=== PATIENT | male | born 1975 | race African-American/Black ===

== ENCOUNTER 2022-02-16 15:24 | Emergency (ER) | payer OTHER ==
[~2022-02-16] VITALS: Ht 165.1 cm; Wt 86.2 kg
[2022-02-16 16:37] LABS: PLATELET COUNT 231 K/uL (142-355)
[2022-02-16 16:42] LABS: POTASSIUM 3.5 mmol/L (3.6-5.2)
[2022-02-16 17:16] VITALS: TEMP 99
[2022-02-16 17:25] VITALS: BP 150/97
== END 2022-02-16 17:30 | disposition home or self-care (01) ==
LOC: ED 15:24
PROVIDERS: Emergency Medicine Emergency Medical Services
DX: B34.9 Viral infection, unspecified (principal); Z20.822 Contact with and (suspected) exposure to COVID-19
CPT/HCPCS: 36415; 80048; 81002; 85027; 87502; 87635; 87651; 96360; 99284; U0003